=== PATIENT | female | born 1995 | race African-American/Black ===

== ENCOUNTER 2023-12-23 20:14 | Emergency (ER) | payer BC, SELFPAY ==
[2023-12-23 20:18] VITALS: BP 108/59; PULSE 63; RESP 16; TEMP 36.5; O2SAT 99
[2023-12-23 22:45] LABS: BEDSIDEPREGUCG Negative
[2023-12-23 22:51] LABS: Add Urine Microscopic? YES; Appearance Urine Clear (Clear); Bacteria Urine None Seen /hpf; Bilirubin Urine Negative (Negative); Blood Urine Negative (Negative); Color Urine Yellow (Yellow); Glucose Urine UA Negative (Negative); Ketones Urine 1+ mg/dL (Negative); Leukocyte Esterase Ur 2+ LEU/UL (Negative); Need Manual Microscopic Reviewed; Nitrate Urine Negative (Negative); Non Pathogenic Casts 0-2; Protein Urine Negative (Negative); RBC Urine 0-2 /hpf (0-2); Specific Grav Ur 1.031 (1.001-1.035); Squamous Epithelial Cell Urine None Seen /hpf (Few); WBC Urine 0-5 /hpf (0-3); pH Urine 6.5 (5.0-9.0)
--- NOTE | 2023-12-23 23:47 | ED.FEMALEGU ---
HPI - Female Genitourinary General Chief complaint: Urogenital-Female Stated complaint: uti symptoms Time Seen by Provider: 12/23/23 22:36 Source: patient Mode of arrival: ambulatory Limitations: no limitations History of Present Illness HPI Narrative: Patient is a 28-year-old female who presents the ED with report of abnormal vaginal discharge. Patient reports over the last 4 days, she has had an increased amount of yellow discharge, which is not normal for her. She denies any odor to the discharge. She does also report dysuria, denies urinary frequency or urgency. Denies hematuria, abnormal vaginal bleeding. Denies abdominal pain, nausea vomiting, fevers. She denies significant concern for STDs, though states this is a possibility. Related Data Allergies Allergy/AdvReac Type Severity Reaction Status Date / Time No Known Allergies Allergy Verified 12/23/23 20:15 Review of Systems Review of Systems: CONSTITUTIONAL: Denies fever, chills, or sweats. GASTROINTESTINAL: Denies abdominal pain, nausea, vomiting, or diarrhea. GENITOURINARY: See HPI. All systems reviewed & are unremarkable except as noted in HPI and below Exam Narrative: GENERAL: Well appearing, obese with BMI of 30.9, non-toxic, in no acute distress. HEAD: Normocephalic, atraumatic. RESPIRATORY: Airway patent, respirations nonlabored. CARDIOVASCULAR: Regular rate and rhythm PELVIC: Normal external genitalia. Vaginal vault with moderate amount of gunn/yellow vaginal discharge. No significant odor. No genital lesions identified. Cervix appears normal. No significant CMT. MUSCULOSKELETAL: Moves all extremities. No gross deformities. SKIN: Warm, dry, normal color. NEURO: A&O X3. Speech clear. PSYCHIATRIC: Appropriate mood and affect. Normal interaction. Course Vital Signs Vital signs: Vital Signs Temperature 97.7 F 12/23/23 20:18 Pulse Rate 63 12/23/23 20:18 Respiratory Rate 16 12/23/23 20:18 Blood Pressure 108/59 L 12/23/23 20:18 Pulse Oximetry 99 12/23/23 20:18 Oxygen Delivery Room Air 12/23/23 20:18 Temperature 97.7 F 12/23/23 20:18 Pulse Rate 72 12/24/23 01:07 Respiratory Rate 16 12/24/23 01:07 Blood Pressure 110/64 12/24/23 01:07 Pulse Oximetry 99 12/24/23 01:07 Oxygen Delivery Room Air 12/23/23 20:18 MDM - Female Genitourinary MDM Narrative Medical decision making narrative: Urinalysis with 2+ leuk esterase, no other signs of infection. No urine bacteria seen. Preg test negative. Gonorrhea, chlamydia, Trichomonas negative. Will treat for likely BV with Flagyl. No other significant pain or other symptoms to suggest need for further labs or imaging at this time. No systemic signs of infection. Advised patient to follow-up with PCP/OBGYN for further evaluation. Given return precautions. Discharged in stable condition. Medical Records Attestation: I reviewed the patient's medical records. Lab Data Attestation: I reviewed the patient's lab results. Labs: Lab Results 12/23/23 12/23/23 12/23/23 Range/Units 22:25 22:26 22:42 Urine Color Yellow (Yellow) Urine Appearance Clear (Clear) Urine pH 6.5 (5.0-9.0) Ur Specific Hiram 1.031 (1.001-1.035) Urine Protein Negative (Negative) mg/dL Urine Glucose (UA) Negative (Negative) mg/dL Urine Ketones 1+ H (Negative) mg/dL Ur Blood (Man) Negative (Negative) Urine Nitrate Negative (Negative) Urine Bilirubin Negative (Negative) Urine Urobilinogen 1.0 (<2.0) mg/dL Add Ur Microanalysis Reviewed Leukocyte Esterase Rfl 2+ H (Negative) YU/UL Urine RBC 0-2 (0-2) /hpf Urine WBC 0-5 (0-3) /hpf Ur Squamous Epith Cells None seen (Few) /hpf Urine Bacteria None seen /hpf Urine Casts 0-2 POC Urine HCG, Qual Negative POC Ur Preg QC Yes C. trachomatis (PCR) Not detected (NOT DETECTE) N. gonorrhoeae (PCR) Not detected (NOT DETECTE)
[2023-12-24 00:31] LABS: Trichomonas Vag PCR NOT DETECTED (NOT DETECTE)
[2023-12-24 00:55] LABS: Chlamydia trachomatis NOT DETECTED (NOT DETECTE); Neisseria gonorrhoeae PCR NOT DETECTED (NOT DETECTE)
[2023-12-24] MEDS: metroNIDAZOLE 500 MG TABLET PO (01:04)
[2023-12-24 01:07] VITALS: BP 110/64; PULSE 72; RESP 16; O2SAT 99
== END 2023-12-24 01:08 | disposition home or self-care (01) ==
PROVIDERS: Emergency Medicine; Emergency Provider Physician Assistant
DX: N76.0 Acute vaginitis (principal)
CPT/HCPCS: 81001; 81025; 87491; 87591; 87661; 99283; A9270